=== PATIENT | female | born 1965 | race African-American/Black ===

== ENCOUNTER 2017-10-23 16:08 | Inpatient (IN) | payer MEDICARE, MEDICAID ==
[~2017-10-23] VITALS: Ht 172.7 cm; Wt 74.6 kg
[~2017-10-23 16:08] MED LIST: BENZ1TAB10 PO; BUSP15 PO; GLIP5 PO; METF500T6 PO; NICO21T TD; OLAN10TA3 PO; SERT100T12 PO
[2017-10-23 19:26] VITALS: BP 119/67
[2017-10-23] MEDS ORDERED: OLANZapine 5 MG RAPDIS TABLET PO PRN (19:45)
[2017-10-23] MEDS ORDERED: GLUCAGON,HUMAN RECOMBINANT 1 MG VIAL IM PRN (19:45)
[2017-10-23] MEDS ORDERED: LORazepam 2 MG TABLET PO PRN (19:45)
[2017-10-23] MEDS ORDERED: ZOLPIDEM TARTRATE 10 MG TABLET PO PRN (19:45)
[2017-10-23 20:21] VITALS: BP 119/61
[2017-10-23 20:28] LABS: GLUCOMETER DEV NAME(LOC) BV2N3; GLUCOSE,POINT OF CARE 227 MG/DL (70-110)
[2017-10-23] MEDS ORDERED: PNEUMOCOCCAL VACCINE POLYVALENT 0.5 ML VIAL [PPSV23] IM ONE (20:30)
[2017-10-23] MEDS: INSULIN LISPRO 100 UNITS/ML SQ PRN (20:58)
[2017-10-24 02:30] VITALS: BP 118/64
[2017-10-24 06:39] LABS: GLUCOMETER DEV NAME(LOC) BV2N3; GLUCOSE,POINT OF CARE 234 MG/DL (70-110)
[2017-10-24] MEDS: MetFORMIN HCL 500 MG TABLET PO SCH ×2 (07:00→16:49)
[2017-10-24] MEDS: GlipiZIDE 5 MG TABLET PO SCH (07:00)
[2017-10-24] MEDS: INSULIN LISPRO 100 UNITS/ML SQ PRN ×3 (07:10→21:05)
[2017-10-24 07:14] LABS: BASOPHILS % (AUTO) 0.8 % (0.0-2.0); HEMATOCRIT 38.4 % (36-46); HEMOGLOBIN 13.1 g/dL (12.0-16.0); LYMPHOCYTES # (AUTO) 2.3 K/uL (1.0-4.8); LYMPHOCYTES % (AUTO) 38.9 % (22.0-44.0); MEAN CORPUSCULAR HEMOGLOBIN 27.8 pg (26.0-34.0); MEAN CORPUSCULAR VOLUME 82 fL (80-100); MONOCYTES # (AUTO) 0.4 K/uL (0.1-1.0); MONOCYTES % (AUTO) 6.4 % (2.0-9.0); NEUTROPHILS % (AUTO) 49.9 % (40.0-70.0); PLATELET COUNT (AUTO) 277 K/uL (150-450); RED CELL DISTRIBUTION WIDTH 16.3 % (11.5-14.5)
[2017-10-24 07:43] LABS: HEMOGLOBIN A1C 10.6 % (4.5-6.2)
[2017-10-24 07:47] LABS: ALANINE AMINOTRANSFERASE 18 U/L (12-78); ALBUMIN 3.3 g/dL (3.4-5.0); ALKALINE PHOSPHATASE 86 U/L (46-116); ANION GAP 5 mmol/L (8-16); ASPARTATE AMINOTRANSFERASE 10 U/L (15-37); BILIRUBIN,TOTAL 0.3 mg/dL (0.1-1.0); CARBON DIOXIDE 31 mmol/L (22-29); CHLORIDE 102 mmol/L (98-107); CHOL/HDL RATIO 4.2 (3.9-5.7); CHOLESTEROL 233 mg/dL (131-200); CREATININE 0.84 mg/dL (0.60-1.30); GLOMERULAR FILTR. RATE CALC > 60 mL/min (>60); GLUCOSE,RANDOM 228 mg/dL (70-110); HDL CHOLESTEROL 56 mg/dL (40-60); LDL CHOL (CALC.) 160 mg/dL (0-130); POTASSIUM 4.7 mmol/L (3.5-5.1); SODIUM SERUM 138 mmol/L (136-145); THYROID STIMULATING HORMONE 1.91 uIU/mL (0.36-3.74); TOTAL PROTEIN, SERUM 6.5 g/dL (6.4-8.2); TRIGLYCERIDES 83 mg/dL (15-150); UREA NITROGEN, BLOOD 11 mg/dL (7-18)
[2017-10-24 08:26] VITALS: BP 109/60
[2017-10-24] MEDS: BusPIRone HCL 5 MG TABLET PO SCH ×2 (08:28→16:49)
[2017-10-24] MEDS: NICOTINE 21 MG/24 HOUR PATCH TD SCH (08:29)
[2017-10-24] MEDS: BENZTROPINE MESYLATE 1 MG TABLET PO SCH (08:29)
[2017-10-24] MEDS: ARIPiprazole 5 MG TABLET PO SCH (08:34)
[2017-10-24] MEDS ORDERED: NICOTINE 21 MG/24 HOUR PATCH TD SCH (09:00)
[2017-10-24 11:13] LABS: GLUCOMETER DEV NAME(LOC) BV2N3; GLUCOSE,POINT OF CARE 119 MG/DL (70-110)
[2017-10-24 16:12] VITALS: BP 116/64
[2017-10-24 18:59] LABS: GLUCOMETER DEV NAME(LOC) BV2N3; GLUCOSE,POINT OF CARE 187 MG/DL (70-110)
[2017-10-24 21:09] LABS: GLUCOMETER DEV NAME(LOC) BV2N3; GLUCOSE,POINT OF CARE 255 MG/DL (70-110)
[2017-10-25 02:54] VITALS: BP 121/83
[2017-10-25] MEDS: GlipiZIDE 5 MG TABLET PO SCH (06:04)
[2017-10-25 06:19] LABS: GLUCOMETER DEV NAME(LOC) BV2N3; GLUCOSE,POINT OF CARE 224 MG/DL (70-110)
[2017-10-25] MEDS: INSULIN LISPRO 100 UNITS/ML SQ PRN ×4 (06:40→20:33)
[2017-10-25] MEDS: MetFORMIN HCL 500 MG TABLET PO SCH ×2 (06:40→16:31)
[2017-10-25 08:27] VITALS: BP 126/66
[2017-10-25] MEDS: ARIPiprazole 5 MG TABLET PO SCH (08:31)
[2017-10-25] MEDS: BENZTROPINE MESYLATE 1 MG TABLET PO SCH (08:31)
[2017-10-25] MEDS: BusPIRone HCL 5 MG TABLET PO SCH ×2 (08:31→16:21)
[2017-10-25] MEDS: NICOTINE 21 MG/24 HOUR PATCH TD SCH (08:32)
[2017-10-25 11:08] LABS: GLUCOMETER DEV NAME(LOC) BV2N3; GLUCOSE,POINT OF CARE 323 MG/DL (70-110)
[2017-10-25 16:20] VITALS: BP 124/77
[2017-10-25] MEDS: CEPHALEXIN MONOHYDRATE 500 MG CAPSULE PO SCH ×2 (16:21→20:14)
[2017-10-25 16:48] LABS: GLUCOMETER DEV NAME(LOC) BV2N3; GLUCOSE,POINT OF CARE 175 MG/DL (70-110)
[2017-10-25 19:59] VITALS: BP 123/84
[2017-10-25] MEDS: PRAZOSIN HCL 1 MG CAPSULE PO SCH (20:14)
[2017-10-25 21:23] LABS: GLUCOMETER DEV NAME(LOC) BV2N3; GLUCOSE,POINT OF CARE 269 MG/DL (70-110)
[2017-10-26 01:21] VITALS: BP 126/74
[2017-10-26] MEDS: GlipiZIDE 5 MG TABLET PO SCH (06:55)
[2017-10-26] MEDS: MetFORMIN HCL 500 MG TABLET PO SCH ×2 (06:55→16:44)
[2017-10-26] MEDS: INSULIN LISPRO 100 UNITS/ML SQ PRN ×4 (06:57→20:38)
[2017-10-26 07:44] LABS: GLUCOMETER DEV NAME(LOC) BV2N3; GLUCOSE,POINT OF CARE 262 MG/DL (70-110)
[2017-10-26] MEDS: CEPHALEXIN MONOHYDRATE 500 MG CAPSULE PO SCH ×4 (08:11→20:30)
[2017-10-26] MEDS: ARIPiprazole 5 MG TABLET PO SCH (08:11)
[2017-10-26] MEDS: NICOTINE 21 MG/24 HOUR PATCH TD SCH (08:11)
[2017-10-26] MEDS: BENZTROPINE MESYLATE 1 MG TABLET PO SCH (08:11)
[2017-10-26] MEDS: BusPIRone HCL 5 MG TABLET PO SCH ×2 (08:11→17:02)
[2017-10-26 08:41] VITALS: BP 122/60
[2017-10-26] MEDS: NEOMYCIN/BACITRACIN/POLYMYXIN B 30 GM OINTMENT TP SCH (09:49)
[2017-10-26 11:13] LABS: GLUCOMETER DEV NAME(LOC) BV2N3; GLUCOSE,POINT OF CARE 195 MG/DL (70-110)
[2017-10-26 16:19] VITALS: BP 106/64
[2017-10-26 16:29] LABS: GLUCOMETER DEV NAME(LOC) BV2N3; GLUCOSE,POINT OF CARE 225 MG/DL (70-110)
[2017-10-26 20:18] LABS: GLUCOMETER DEV NAME(LOC) BV2N3; GLUCOSE,POINT OF CARE 165 MG/DL (70-110)
[2017-10-26] MEDS: PRAZOSIN HCL 1 MG CAPSULE PO SCH (20:30)
[2017-10-26 20:31] VITALS: BP 122/84
[2017-10-26] MEDS ORDERED: PETROLATUM,WHITE 71 GM JELLY TP PRN (21:30)
[2017-10-27 01:23] VITALS: BP 116/65
[2017-10-27 06:45] LABS: GLUCOMETER DEV NAME(LOC) BV2N3; GLUCOSE,POINT OF CARE 265 MG/DL (70-110)
[2017-10-27] MEDS: MetFORMIN HCL 500 MG TABLET PO SCH ×2 (07:22→16:32)
[2017-10-27] MEDS: GlipiZIDE 5 MG TABLET PO SCH (07:22)
[2017-10-27] MEDS: INSULIN LISPRO 100 UNITS/ML SQ PRN ×4 (07:23→20:39)
[2017-10-27] MEDS: CEPHALEXIN MONOHYDRATE 500 MG CAPSULE PO SCH ×4 (08:58→20:28)
[2017-10-27] MEDS: ARIPiprazole 5 MG TABLET PO SCH (08:58)
[2017-10-27] MEDS: NICOTINE 21 MG/24 HOUR PATCH TD SCH (08:59)
[2017-10-27] MEDS: BENZTROPINE MESYLATE 1 MG TABLET PO SCH (08:59)
[2017-10-27] MEDS: BusPIRone HCL 5 MG TABLET PO SCH ×2 (08:59→16:32)
[2017-10-27] MEDS: NEOMYCIN/BACITRACIN/POLYMYXIN B 30 GM OINTMENT TP SCH (09:02)
[2017-10-27 09:04] VITALS: BP 120/77
[2017-10-27 11:08] LABS: GLUCOMETER DEV NAME(LOC) BV2N3; GLUCOSE,POINT OF CARE 265 MG/DL (70-110)
[2017-10-27 16:08] VITALS: BP 121/74
[2017-10-27 16:28] LABS: GLUCOMETER DEV NAME(LOC) BV2N3; GLUCOSE,POINT OF CARE 141 MG/DL (70-110)
[2017-10-27 20:22] LABS: GLUCOMETER DEV NAME(LOC) BV2N3; GLUCOSE,POINT OF CARE 186 MG/DL (70-110)
[2017-10-27 20:28] VITALS: BP 133/71
[2017-10-27] MEDS: PRAZOSIN HCL 1 MG CAPSULE PO SCH (20:28)
[2017-10-28 01:08] VITALS: BP 107/60
[2017-10-28 05:58] LABS: GLUCOMETER DEV NAME(LOC) BV2N3; GLUCOSE,POINT OF CARE 228 MG/DL (70-110)
[2017-10-28] MEDS: GlipiZIDE 5 MG TABLET PO SCH (06:01)
[2017-10-28] MEDS: INSULIN LISPRO 100 UNITS/ML SQ PRN ×4 (06:38→22:13)
[2017-10-28] MEDS: MetFORMIN HCL 500 MG TABLET PO SCH ×2 (06:51→17:22)
[2017-10-28 08:00] VITALS: BP 109/71
[2017-10-28] MEDS: BusPIRone HCL 5 MG TABLET PO SCH ×2 (08:39→17:22)
[2017-10-28] MEDS: BENZTROPINE MESYLATE 1 MG TABLET PO SCH (08:39)
[2017-10-28] MEDS: ARIPiprazole 5 MG TABLET PO SCH (08:39)
[2017-10-28] MEDS: CEPHALEXIN MONOHYDRATE 500 MG CAPSULE PO SCH ×4 (08:39→21:59)
[2017-10-28] MEDS: NICOTINE 21 MG/24 HOUR PATCH TD SCH (08:39)
[2017-10-28] MEDS: NEOMYCIN/BACITRACIN/POLYMYXIN B 30 GM OINTMENT TP SCH (08:40)
[2017-10-28 11:14] LABS: GLUCOMETER DEV NAME(LOC) BV2N3; GLUCOSE,POINT OF CARE 157 MG/DL (70-110)
[2017-10-28 16:27] VITALS: BP 112/72
[2017-10-28 17:49] LABS: GLUCOMETER DEV NAME(LOC) BV2N3; GLUCOSE,POINT OF CARE 260 MG/DL (70-110)
[2017-10-28 20:34] LABS: GLUCOMETER DEV NAME(LOC) BV2N3; GLUCOSE,POINT OF CARE 186 MG/DL (70-110)
[2017-10-28] MEDS ORDERED: TUBERCULIN, PURIFIED PROTEIN DERIVATIVE 5 TU/0.1 ML SYG ID ONE (20:45)
[2017-10-28] MEDS: PRAZOSIN HCL 1 MG CAPSULE PO SCH (21:59)
[2017-10-29 02:07] VITALS: BP 123/72
[2017-10-29 06:28] LABS: GLUCOMETER DEV NAME(LOC) BV2N3; GLUCOSE,POINT OF CARE 194 MG/DL (70-110)
[2017-10-29] MEDS: MetFORMIN HCL 500 MG TABLET PO SCH ×2 (06:50→16:55)
[2017-10-29] MEDS: GlipiZIDE 5 MG TABLET PO SCH (06:50)
[2017-10-29] MEDS: INSULIN LISPRO 100 UNITS/ML SQ PRN ×4 (06:53→20:27)
[2017-10-29 08:11] VITALS: BP 120/71
[2017-10-29] MEDS: ARIPiprazole 5 MG TABLET PO SCH (08:49)
[2017-10-29] MEDS: BusPIRone HCL 5 MG TABLET PO SCH ×2 (08:49→16:55)
[2017-10-29] MEDS: BENZTROPINE MESYLATE 1 MG TABLET PO SCH (08:50)
[2017-10-29] MEDS: CEPHALEXIN MONOHYDRATE 500 MG CAPSULE PO SCH ×4 (08:50→20:12)
[2017-10-29] MEDS: NICOTINE 21 MG/24 HOUR PATCH TD SCH (08:51)
[2017-10-29] MEDS: NEOMYCIN/BACITRACIN/POLYMYXIN B 30 GM OINTMENT TP SCH (08:52)
[2017-10-29] MEDS ORDERED: FLUoxetine HCL 10 MG CAPSULE PO SCH (09:00)
[2017-10-29 11:07] LABS: CREATINE KINASE, TOTAL 44 U/L (26-192)
[2017-10-29 11:13] LABS: GLUCOMETER DEV NAME(LOC) BV2N3; GLUCOSE,POINT OF CARE 198 MG/DL (70-110)
[2017-10-29 14:14] LABS: FOLATE SERUM 10.2 ng/mL (5.4-)
[2017-10-29 16:10] VITALS: BP 111/72
[2017-10-29 16:44] LABS: GLUCOMETER DEV NAME(LOC) BV2N3; GLUCOSE,POINT OF CARE 170 MG/DL (70-110)
[2017-10-29 20:10] VITALS: BP 123/71
[2017-10-29] MEDS: ATORVASTATIN CALCIUM 10 MG TABLET PO SCH (20:12)
[2017-10-29] MEDS: PRAZOSIN HCL 1 MG CAPSULE PO SCH (20:12)
[2017-10-29 20:49] LABS: GLUCOMETER DEV NAME(LOC) BV2N3; GLUCOSE,POINT OF CARE 185 MG/DL (70-110)
[2017-10-30 04:49] VITALS: BP 120/67
[2017-10-30] MEDS: GlipiZIDE 5 MG TABLET PO SCH (06:06)
[2017-10-30] MEDS: MetFORMIN HCL 500 MG TABLET PO SCH ×2 (06:17→17:07)
[2017-10-30 06:34] LABS: GLUCOMETER DEV NAME(LOC) BV2N3; GLUCOSE,POINT OF CARE 194 MG/DL (70-110)
[2017-10-30] MEDS: INSULIN LISPRO 100 UNITS/ML SQ PRN ×2 (06:44→20:29)
[2017-10-30 08:23] VITALS: BP 109/73
[2017-10-30] MEDS: BENZTROPINE MESYLATE 1 MG TABLET PO SCH (08:49)
[2017-10-30] MEDS: ARIPiprazole 5 MG TABLET PO SCH (08:49)
[2017-10-30] MEDS: FLUoxetine HCL 20 MG CAPSULE PO SCH (08:49)
[2017-10-30] MEDS: NICOTINE 21 MG/24 HOUR PATCH TD SCH (08:50)
[2017-10-30] MEDS: CEPHALEXIN MONOHYDRATE 500 MG CAPSULE PO SCH ×3 (08:50→17:07)
[2017-10-30] MEDS: BusPIRone HCL 5 MG TABLET PO SCH ×2 (08:50→17:07)
[2017-10-30] MEDS: NEOMYCIN/BACITRACIN/POLYMYXIN B 30 GM OINTMENT TP SCH (08:57)
[2017-10-30 11:08] LABS: GLUCOMETER DEV NAME(LOC) BV2N3; GLUCOSE,POINT OF CARE 93 MG/DL (70-110)
[2017-10-30] MEDS ORDERED: ACETAMINOPHEN 325 MG TABLET PO PRN (14:15)
[2017-10-30 14:25] VITALS: BP 112/74
[2017-10-30] MEDS: IBUPROFEN 600 MG TABLET PO PRN (14:25)
[2017-10-30 16:11] VITALS: BP 138/81
[2017-10-30 16:44] LABS: GLUCOMETER DEV NAME(LOC) BV2N3; GLUCOSE,POINT OF CARE 139 MG/DL (70-110)
[2017-10-30 20:25] VITALS: BP 125/74
[2017-10-30] MEDS: PRAZOSIN HCL 1 MG CAPSULE PO SCH (20:26)
[2017-10-30] MEDS: ATORVASTATIN CALCIUM 10 MG TABLET PO SCH (20:26)
[2017-10-30 20:49] LABS: GLUCOMETER DEV NAME(LOC) BV2N3; GLUCOSE,POINT OF CARE 143 MG/DL (70-110)
[2017-10-31 01:15] VITALS: BP 118/62
[2017-10-31] MEDS: IBUPROFEN 600 MG TABLET PO PRN (05:37)
[2017-10-31 06:14] LABS: GLUCOMETER DEV NAME(LOC) BV2N3; GLUCOSE,POINT OF CARE 182 MG/DL (70-110)
[2017-10-31] MEDS: INSULIN LISPRO 100 UNITS/ML SQ PRN (06:25)
[2017-10-31] MEDS: GlipiZIDE 5 MG TABLET PO SCH (07:00)
[2017-10-31] MEDS: MetFORMIN HCL 500 MG TABLET PO SCH ×2 (07:01→16:18)
[2017-10-31] MEDS: BusPIRone HCL 5 MG TABLET PO SCH ×2 (08:11→16:18)
[2017-10-31] MEDS: FLUoxetine HCL 20 MG CAPSULE PO SCH (08:12)
[2017-10-31] MEDS: BENZTROPINE MESYLATE 1 MG TABLET PO SCH (08:12)
[2017-10-31] MEDS: NICOTINE 21 MG/24 HOUR PATCH TD SCH (08:12)
[2017-10-31] MEDS: ARIPiprazole 5 MG TABLET PO SCH (08:12)
[2017-10-31] MEDS: NEOMYCIN/BACITRACIN/POLYMYXIN B 30 GM OINTMENT TP SCH (08:13)
[2017-10-31 08:14] VITALS: BP 108/72
[2017-10-31] MEDS: CHOLECALCIFEROL (VIT D3) 1,000 UNITS TABLET PO SCH (09:44)
[2017-10-31 10:59] LABS: GLUCOMETER DEV NAME(LOC) BV2N3; GLUCOSE,POINT OF CARE 114 MG/DL (70-110)
[2017-10-31 16:02] VITALS: BP 120/66
[2017-10-31 17:33] LABS: GLUCOMETER DEV NAME(LOC) BV2N3; GLUCOSE,POINT OF CARE 126 MG/DL (70-110)
[2017-10-31] MEDS: PRAZOSIN HCL 1 MG CAPSULE PO SCH (20:26)
[2017-10-31] MEDS: ATORVASTATIN CALCIUM 10 MG TABLET PO SCH (20:26)
[2017-10-31 20:33] LABS: GLUCOMETER DEV NAME(LOC) BV2N3; GLUCOSE,POINT OF CARE 122 MG/DL (70-110)
[2017-11-01 00:06] VITALS: BP 132/71
[2017-11-01 05:39] LABS: GLUCOMETER DEV NAME(LOC) BV2N3; GLUCOSE,POINT OF CARE 157 MG/DL (70-110)
[2017-11-01] MEDS: GlipiZIDE 5 MG TABLET PO SCH (06:13)
[2017-11-01] MEDS: INSULIN LISPRO 100 UNITS/ML SQ PRN (06:36)
[2017-11-01] MEDS: MetFORMIN HCL 500 MG TABLET PO SCH ×2 (06:56→16:55)
[2017-11-01 08:12] VITALS: BP 123/66
[2017-11-01] MEDS: BusPIRone HCL 5 MG TABLET PO SCH ×2 (08:57→16:55)
[2017-11-01] MEDS: CHOLECALCIFEROL (VIT D3) 1,000 UNITS TABLET PO SCH (08:57)
[2017-11-01] MEDS: BENZTROPINE MESYLATE 1 MG TABLET PO SCH (08:57)
[2017-11-01] MEDS: FLUoxetine HCL 20 MG CAPSULE PO SCH (08:58)
[2017-11-01] MEDS: NICOTINE 21 MG/24 HOUR PATCH TD SCH (08:58)
[2017-11-01] MEDS: ARIPiprazole 5 MG TABLET PO SCH (08:58)
[2017-11-01] MEDS: NEOMYCIN/BACITRACIN/POLYMYXIN B 30 GM OINTMENT TP SCH (09:06)
[2017-11-01 11:03] LABS: GLUCOMETER DEV NAME(LOC) BV2N3; GLUCOSE,POINT OF CARE 119 MG/DL (70-110)
[2017-11-01 16:07] VITALS: BP 115/70
[2017-11-01 16:33] LABS: GLUCOMETER DEV NAME(LOC) BV2N3; GLUCOSE,POINT OF CARE 110 MG/DL (70-110)
[2017-11-01 20:20] VITALS: BP 128/75
[2017-11-01] MEDS: ATORVASTATIN CALCIUM 10 MG TABLET PO SCH (20:20)
[2017-11-01] MEDS: PRAZOSIN HCL 1 MG CAPSULE PO SCH (20:20)
[2017-11-01 20:45] LABS: GLUCOMETER DEV NAME(LOC) BV2N3; GLUCOSE,POINT OF CARE 110 MG/DL (70-110)
[2017-11-02 00:45] VITALS: BP 121/61
[2017-11-02] MEDS ORDERED: BISACODYL 5 MG EC TABLET PO PRN (06:30)
[2017-11-02 06:35] LABS: GLUCOMETER DEV NAME(LOC) BV2N3; GLUCOSE,POINT OF CARE 139 MG/DL (70-110)
[2017-11-02] MEDS: GlipiZIDE 5 MG TABLET PO SCH (06:35)
[2017-11-02] MEDS: MetFORMIN HCL 500 MG TABLET PO SCH (06:36)
[2017-11-02] MEDS: FLUoxetine HCL 20 MG CAPSULE PO SCH (08:09)
[2017-11-02] MEDS: ARIPiprazole 5 MG TABLET PO SCH (08:09)
[2017-11-02] MEDS: CHOLECALCIFEROL (VIT D3) 1,000 UNITS TABLET PO SCH (08:09)
[2017-11-02] MEDS: BENZTROPINE MESYLATE 1 MG TABLET PO SCH (08:09)
[2017-11-02] MEDS: BusPIRone HCL 5 MG TABLET PO SCH (08:09)
[2017-11-02] MEDS: NICOTINE 21 MG/24 HOUR PATCH TD SCH (08:10)
[2017-11-02] MEDS: NEOMYCIN/BACITRACIN/POLYMYXIN B 30 GM OINTMENT TP SCH (08:11)
[2017-11-02 08:48] VITALS: BP 122/60
[2017-11-02] MEDS: INSULIN LISPRO 100 UNITS/ML SQ PRN (10:58)
[2017-11-02 11:03] LABS: GLUCOMETER DEV NAME(LOC) BV2N3; GLUCOSE,POINT OF CARE 168 MG/DL (70-110)
[2017-11-02] MEDS ORDERED: ARIP5TAB8 PO (11:41)
[2017-11-02] MEDS ORDERED: FLUO-191 PO (11:41)
[2017-11-02] MEDS ORDERED: CHOL200078 PO (12:11)
[2017-11-02] MEDS ORDERED: CHOL200016 PO (12:48)
[2017-11-02] MEDS ORDERED: PRAZ1 PO (12:48)
[2017-11-02] MEDS ORDERED: ATOR10TA84 PO (12:48)
[2017-11-05] MEDS ORDERED: HYDR-4031 PO (12:16)
== END 2017-11-02 13:10 | disposition home or self-care (01) | DRG 885 ==
LOC: B2X 19:36
PROVIDERS: ADMIT Psychiatry & Neurology Psychiatry; ATTEND Psychiatry & Neurology Psychiatry
DX: F31.5 Bipolar disorder, current episode depressed, severe, with psychotic features (principal); R45.851 Suicidal ideations; E11.65 Type 2 diabetes mellitus with hyperglycemia; K21.9 Gastro-esophageal reflux disease without esophagitis; I10 Essential (primary) hypertension; E78.5 Hyperlipidemia, unspecified; E55.9 Vitamin D deficiency, unspecified; D64.9 Anemia, unspecified; Z72.0 Tobacco use; Z91.14 Patient's other noncompliance with medication regimen; Z79.899 Other long term (current) drug therapy
CPT/HCPCS: 80074; 82306; 82607; 82746; 83036; 83735; 84439; 84443; 87081; 90471